=== PATIENT | male | born 1985 | race African-American/Black ===

== ENCOUNTER 2017-11-01 22:07 | Emergency (ER) | payer OTHER ==
[~2017-11-01] VITALS: Ht 175.3 cm; Wt 83.9 kg
[2017-11-01 22:12] VITALS: BP 150/101
[2017-11-01] MEDS: NACL 0.9% 1,000 ML IV ONE (23:45)
[2017-11-01] MEDS: LORazepam 2 MG/ML VIAL IVP ONE (23:46)
[2017-11-01 23:48] LABS: BASOPHILS % (AUTO) 0.6 % (0.0-2.0); EOSINOPHILS # (AUTO) 0.1 K/uL (0-0.4); EOSINOPHILS % (AUTO) 2.5 % (0.0-4.0); HEMATOCRIT 49.9 % (36-52); HEMOGLOBIN 17.4 g/dL (12.0-18.0); LYMPHOCYTES # (AUTO) 2.1 K/uL (2.0-11.5); MEAN CORPUSCULAR HEMOGLOBIN 32 pg (27-31); MEAN CORPUSCULAR HGB CONC 35 g/dL (33-37); MEAN CORPUSCULAR VOLUME 93.1 fL (80-94); MONOCYTES # (AUTO) 0.7 K/uL (0.8-1.0); MONOCYTES % (AUTO) 10.9 % (1.7-9.3); NEUTROPHILS # (AUTO) 3.2 K/uL (1.8-7.7); PLATELET COUNT (AUTO) 297 K/uL (140-450); RED BLOOD CELL COUNT(AUTO) 5.36 MIL/uL (4.20-6.10); RED CELL DISTRIBUTION WIDTH 13.4 % (11.6-13.7); WHITE BLOOD COUNT (AUTO) 6.1 K/uL (4.8-10.8)
[2017-11-01 23:57] LABS: ANION GAP 15.8 (8-16); CARBON DIOXIDE 24.6 mmol/L (21-32); CREATININE 1.1 mg/dL (0.7-1.3); POTASSIUM 3.4 mmol/L (3.5-5.1)
[2017-11-02 00:03] LABS: ALBUMIN 3.8 g/dL (3.4-5.0); TOTAL BILIRUBIN 0.5 mg/dL (0.0-1.0)
[2017-11-02] MEDS: NACL 0.9% 1,000 ML IV STA (01:23)
[2017-11-02 01:25] VITALS: BP 126/91
== END 2017-11-02 01:25 | disposition home or self-care (01) ==
LOC: MED 22:07
DX: F10.239 Alcohol dependence with withdrawal, unspecified (principal)
CPT/HCPCS: 36415; 80053; 85025; 96361; 96374; 99284; G0482; J2060

== ENCOUNTER 2018-01-01 09:51 | Emergency (ER) | payer OTHER ==
[~2018-01-01] VITALS: Ht 175.3 cm; Wt 83.9 kg
[2018-01-01 10:00] VITALS: BP 132/86
--- NOTE | 2018-01-01 10:04 | NUR ---
PT AMBULATED TO ER BED 4.
--- NOTE | 2018-01-01 10:05 | NUR ---
PT. CAME INTO THE ED DUE TO R SIDE PAIN THAT RADIATES TO R LOWER BACK X 4 DAYS W/ DIAHRRHEA. PT. STATES " I HAD SOME PAIN HERE ON MY SIDE FOR ABOUT 4 DAYS AND SOME DIAHRRHEA, MY APPETITE HAS BEEN LOW WELL". 8/10 DULL ACHING RADIATING PAIN FROM R SIDE TO R LOWER BACK. PT DENIES ANY N/V/, DENIES ANY FEVER. PT. HAS HAD 4 DAYS W/ DIAHRRHEA. PT. IS AWAKE AND CAN MAINTAIN A CONVERSATION. RR EVEN AND UNLABORED. ABD IS ROUND AND SOFT WITH NO PAIN UPON PALPATION. ER MD NOTIFIED. AT BEDSIDE WILL CONTINUE TO MONITOR. SAFETY PRECAUTIONS IMPLEMENTED.
[2018-01-01] MEDS ORDERED: NACL 0.9% 1,000 ML IV SCH (10:22)
[2018-01-01] MEDS ORDERED: NACL 0.9% 1,000 ML IV ONE (10:22)
[2018-01-01] MEDS ORDERED: KETOROLAC 30 MG/ML VIAL IVP ONE (10:25)
--- NOTE | 2018-01-01 10:28 | NUR ---
PT. TAKEN TO CT VIA WHEELCHAIR BY
[2018-01-01] MEDS ORDERED: diphenhydrAMINE 50 MG/ML VIAL IVP ONE (10:30)
[2018-01-01] MEDS ORDERED: MORPHINE SULFATE 2 MG/ML SYR IM ONE (10:30)
[2018-01-01 11:09] LABS: APPEARANCE,URINE CLEAR (CLEAR); BILIRUBIN,URINE NEGATIVE (NEGATIVE); BLOOD, URINE NEGATIVE (NEGATIVE); COLOR,URINE YELLOW (YELLOW); LEUKOCYTE ESTERASE ,URINE NEGATIVE (NEGATIVE); NITRITE, URINE NEGATIVE (NEGATIVE); UGLUCOSE NEGATIVE (NEGATIVE)
[2018-01-01 11:15] LABS: BARBITURATE, URINE NEG. ng/ml (NEG <=200); BENZODIAZEPINE, URINE POS. ng/mL (NEG <=200); COCAINE, URINE NEG. ng/mL (NEG <=300); OPIATE, URINE NEG. ng/mL (NEG <=2000); PHENCYCLIDINE SCREEN,URINE NEG. ng/mL (NEG <=25)
[2018-01-01 11:17] LABS: HEMATOCRIT 49.5 % (36-52); HEMOGLOBIN 16.6 g/dL (12.0-18.0); MEAN CORPUSCULAR HEMOGLOBIN 32 pg (27-31); MEAN CORPUSCULAR HGB CONC 34 g/dL (33-37); MEAN CORPUSCULAR VOLUME 96.6 fL (80-94); RED BLOOD CELL COUNT(AUTO) 5.13 MIL/uL (4.20-6.10); WHITE BLOOD COUNT (AUTO) 5.3 K/uL (4.8-10.8)
[2018-01-01 11:18] LABS: BASOPHILS % (AUTO) 4.7 % (0.0-2.0); EOSINOPHILS % (AUTO) 2.3 % (0.0-4.0); LYMPHOCYTES # (AUTO) 1.1 K/uL (2.0-11.5); LYMPHOCYTES % (AUTO) 21.4 % (20.5-51.1); MONOCYTES # (AUTO) 0.5 K/uL (0.8-1.0); MONOCYTES % (AUTO) 9.5 % (1.7-9.3); NEUTROPHILS # (AUTO) 3.3 K/uL (1.8-7.7); NEUTROPHILS % (AUTO) 62.1 % (42.2-75.2); PLATELET COUNT (AUTO) 255 K/uL (140-450); RED CELL DISTRIBUTION WIDTH 14.3 % (11.6-13.7)
[2018-01-01 11:19] LABS: BASOPHILS # (AUTO) 0.3 K/uL (0.00-0.22); EOSINOPHILS # (AUTO) 0.1 K/uL (0-0.4)
[2018-01-01 11:24] LABS: ANION GAP 13.3 (8-16); CARBON DIOXIDE 23.5 mmol/L (21-32); CREATININE 1.3 mg/dL (0.7-1.3); POTASSIUM 3.8 mmol/L (3.5-5.1)
[2018-01-01 11:25] LABS: CANNABINOID, URINE POS. ng/mL (NEG <=50)
[2018-01-01 11:30] LABS: ALBUMIN 4.2 g/dL (3.4-5.0); TOTAL BILIRUBIN 0.8 mg/dL (0.0-1.0)
--- NOTE | 2018-01-01 11:30 | NUR ---
PT. RESTING COMFORTABLY IN BED, RR EVEN AND UNLABORED. VSS. BED IN LOWEST POSITION. AT BEDSIDE. WILL CONTINUE TO MONITOR.
--- NOTE | 2018-01-01 12:35 | NUR ---
Note daphne in ED - 01/01/18 at 1306 by MEDROLANDO PT. HAD A SEIZURE THAT LASTED 3 MIN. VASHTI MORGAN NOTIFIED.
--- NOTE | 2018-01-01 12:45 | NUR ---
PT. RESTING COMFORTABLY IN BED, RR EVEN AND UNLABORED. VSS. AT BEDSIDE. WILL CONTINUE TO MONITOR.
--- NOTE | 2018-01-01 13:35 | NUR ---
PT. RSETING COMFORTABLY IN BED, RR EVEN AND UNLABORED. VSS. WILL CONTINUE TO MONITOR.
[2018-01-01 14:18] VITALS: BP 128/77
--- NOTE | 2018-01-01 14:19 | NUR ---
Patient discharged with v/s stable. Written and verbal after care instructions given and explained. Patient alert, oriented and verbalized understanding of instructions. Ambulatory with steady gait. All questions addressed prior to discharge. ID band removed. Patient advised to follow up with PMD. Rx of LEVSIN,REGLAN given. Patient educated on indication of medication including possible reaction and side effects. Opportunity to ask questions provided and answered.
== END 2018-01-01 14:19 | disposition home or self-care (01) ==
LOC: MED 09:51
DX: K52.9 Noninfective gastroenteritis and colitis, unspecified (principal); I10 Essential (primary) hypertension; F17.210 Nicotine dependence, cigarettes, uncomplicated
CPT/HCPCS: 36415; 74176; 80053; 80305; 81003; 82150; 83690; 85025; 96361; 96374; 96375; 99285; G0482; J1200; J1885; J2270; J7030; 96372

== ENCOUNTER 2018-06-17 12:35 | Emergency (ER) | payer OTHER ==
[~2018-06-17] VITALS: Ht 175.3 cm; Wt 80.9 kg
--- NOTE | 2018-06-17 12:59 | NUR ---
PATIENT AMBULATED TO ER BED 2
[2018-06-17 13:00] VITALS: BP 138/85
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
[2018-06-17] MEDS ORDERED: NACL 0.9% 1,000 ML IV ONE ×2 (13:10→16:10)
--- NOTE | 2018-06-17 13:15 | NUR ---
LAB AT BEDSIDE.
[2018-06-17 13:28] LABS: BASOPHILS % (AUTO) 0.5 % (0.0-2.0); EOSINOPHILS % (AUTO) 0.5 % (0.0-4.0); HEMOGLOBIN 16.5 g/dL (12.0-18.0); LYMPHOCYTES # (AUTO) 2.3 K/uL (2.0-11.5); LYMPHOCYTES % (AUTO) 34.5 % (20.5-51.1); MEAN CORPUSCULAR HEMOGLOBIN 31 pg (27-31); MEAN CORPUSCULAR HGB CONC 34 g/dL (33-37); MEAN CORPUSCULAR VOLUME 91.1 fL (80-94); MONOCYTES # (AUTO) 0.5 K/uL (0.8-1.0); MONOCYTES % (AUTO) 7.1 % (1.7-9.3); NEUTROPHILS # (AUTO) 3.9 K/uL (1.8-7.7); NEUTROPHILS % (AUTO) 57.4 % (42.2-75.2); PLATELET COUNT (AUTO) 253 K/uL (140-450); RED BLOOD CELL COUNT(AUTO) 5.38 MIL/uL (4.20-6.10); RED CELL DISTRIBUTION WIDTH 13.3 % (11.6-13.7); WHITE BLOOD COUNT (AUTO) 6.7 K/uL (4.8-10.8)
[2018-06-17 13:39] LABS: ALBUMIN 3.9 g/dL (3.4-5.0); ANION GAP 13.3 (8-16); ASPARTATE AMINOTRANSFERASE 27 U/L (15-37); CARBON DIOXIDE 27.4 mmol/L (21-32); CHLORIDE 103 mmol/L (98-107); GFR ARICAN-AMERICAN 111 mL/min (>90); LIPASE 101 U/L (73-393); POTASSIUM 3.7 mmol/L (3.5-5.1); SODIUM SERUM 140 mmol/L (136-145); TOTAL BILIRUBIN 0.6 mg/dL (0.0-1.0); UREA NITROGEN, BLOOD 5 mg/dL (7-18)
[2018-06-17 13:49] LABS: GLUCOSE 104 mg/dL (74-106)
[2018-06-17 13:50] LABS: ACETAMINOPHEN < 0.5 ug/ml (10-30); SALICYLATE < 2.8 mg/dL (2.8-20.0)
[2018-06-17 13:56] LABS: BARBITURATE, URINE NEG. ng/ml (NEG <=200); BENZODIAZEPINE, URINE NEG. ng/mL (NEG <=200); CANNABINOID, URINE NEG. ng/mL (NEG <=50); COCAINE, URINE NEG. ng/mL (NEG <=300); OPIATE, URINE NEG. ng/mL (NEG <=2000); PHENCYCLIDINE SCREEN,URINE NEG. ng/mL (NEG <=25)
[2018-06-17] MEDS ORDERED: LORazepam 2 MG/ML VIAL IVP ONE (15:15)
[2018-06-17] MEDS ORDERED: MORPHINE SULFATE 4 MG/ML SYR IVP ONE (15:50)
[2018-06-17 17:50] VITALS: BP 136/90
--- NOTE | 2018-06-17 17:50 | NUR ---
Patient discharged with v/s stable. Written and verbal after care instructions given and explained. Patient verbalized understanding. Ambulatory with steady gait. All questions addressed prior to discharge. Advised to follow up with PMD.
== END 2018-06-17 17:50 | disposition home or self-care (01) ==
LOC: MED 12:35
DX: F10.239 Alcohol dependence with withdrawal, unspecified (principal); I10 Essential (primary) hypertension
CPT/HCPCS: 36415; 80053; 80305; 83690; 85025; 93005; 96374; 96375; 99284; G0480; G0482; J2060; J2270; J7030

== ENCOUNTER 2019-01-19 04:04 | Emergency (ER) | payer OTHER ==
[~2019-01-19] VITALS: Ht 175.3 cm; Wt 79.4 kg
[2019-01-19 04:06] VITALS: BP 157/61
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
--- NOTE | 2019-01-19 04:30 | NUR ---
SEEN AND EXAMINED BT ERMD AND WITH ORDERS AND CARRIED OUT.
[2019-01-19] MEDS ORDERED: LORazepam 2 MG/ML VIAL IVP ONE (04:35)
[2019-01-19] MEDS ORDERED: ASPIRIN 325 MG TAB PO ONE (04:35)
--- NOTE | 2019-01-19 04:35 | NUR ---
MEDICATED PER ERMDS ORDER , PATIENT TOLERATED WELL.
[2019-01-19 05:13] LABS: BASOPHILS % (AUTO) 0.5 % (0.0-2.0); EOSINOPHILS # (AUTO) 0.2 K/uL (0-0.4); EOSINOPHILS % (AUTO) 2.1 % (0.0-4.0); HEMATOCRIT 48.8 % (36-52); HEMOGLOBIN 16.6 g/dL (12.0-18.0); LYMPHOCYTES # (AUTO) 2.2 K/uL (2.0-11.5); LYMPHOCYTES % (AUTO) 29.2 % (20.5-51.1); MEAN CORPUSCULAR HEMOGLOBIN 31 pg (27-31); MEAN CORPUSCULAR HGB CONC 34 g/dL (33-37); MEAN CORPUSCULAR VOLUME 91.8 fL (80-94); MONOCYTES # (AUTO) 0.6 K/uL (0.8-1.0); MONOCYTES % (AUTO) 7.7 % (1.7-9.3); NEUTROPHILS # (AUTO) 4.6 K/uL (1.8-7.7); NEUTROPHILS % (AUTO) 60.5 % (42.2-75.2); PLATELET COUNT (AUTO) 253 K/uL (140-450); RED BLOOD CELL COUNT(AUTO) 5.31 MIL/uL (4.20-6.10); RED CELL DISTRIBUTION WIDTH 13.6 % (11.6-13.7); WHITE BLOOD COUNT (AUTO) 7.6 K/uL (4.8-10.8)
[2019-01-19 05:14] LABS: ANION GAP 15.6 (8-16); CARBON DIOXIDE 26.6 mmol/L (21-32); CREATININE 1.1 mg/dL (0.7-1.3); POTASSIUM 3.2 mmol/L (3.5-5.1)
[2019-01-19 05:19] LABS: ALBUMIN 4.5 g/dL (3.4-5.0); TOTAL BILIRUBIN 1.4 mg/dL (0.0-1.0)
[2019-01-19 05:23] LABS: BARBITURATE, URINE NEG. ng/ml (NEG <=200); BENZODIAZEPINE, URINE NEG. ng/mL (NEG <=200); CANNABINOID, URINE NEG. ng/mL (NEG <=50); COCAINE, URINE NEG. ng/mL (NEG <=300); OPIATE, URINE NEG. ng/mL (NEG <=2000); PHENCYCLIDINE SCREEN,URINE NEG. ng/mL (NEG <=25)
[2019-01-19 05:29] LABS: CREATINE KINASE MB 9.3 ng/mL (0-3.6)
[2019-01-19] MEDS ORDERED: POTASSIUM CHLORIDE 10 MEQ TABER PO ONE (05:35)
--- NOTE | 2019-01-19 06:00 | NUR ---
ALL RESULTS BACK AND NOTED BY ERMD AND FOR D/C
[2019-01-19 06:40] VITALS: BP 124/90
--- NOTE | 2019-01-19 06:40 | NUR ---
Patient discharged with v/s stable. Written and verbal after care instructions given and explained. Patient verbalized understanding. Wheel Chair Assisted with to car. All questions addressed prior to discharge. Advised to follow up with PMD.
== END 2019-01-19 06:40 | disposition home or self-care (01) ==
LOC: MED 04:04
DX: R07.9 Chest pain, unspecified (principal); F15.10 Other stimulant abuse, uncomplicated; I10 Essential (primary) hypertension
CPT/HCPCS: 36415; 71045; 80053; 80305; 82550; 82553; 83690; 84484; 85025; 93005; 96374; 99284; J2060; Q0092